=== PATIENT | male | born 1985 | race Caucasian/White ===

== ENCOUNTER 2018-08-04 22:02 | Emergency (ER) | payer SELFPAY ==
[2018-08-04] MEDS ORDERED: ASPIRIN PO ONE (22:27)
[2018-08-04 23:47] LABS: Basophils # (Auto) 0.1 K/mm3 (0.0-0.1); Basophils % (Auto) 0.7 % (0.0-1.8); Eosinophils # (Auto) 0.3 K/mm3 (0.0-0.4); Eosinophils % (Auto) 2.4 % (0.0-4.3); Hematocrit 44.2 % (35.5-45.6); Hemoglobin 14.8 gm/dl (11.8-15.2); Lymphocytes # (Auto) 3.6 K/mm3 (1.2-5.4); Lymphocytes % (Auto) 26.9 % (13.4-35.0); Mean Corpuscular HGB Conc 33 % (32-34); Mean Corpuscular Hemoglobin 29 pg (28-32); Mean Corpuscular Volume 88 fl (84-94); Monocytes # (Auto) 1.1 K/mm3 (0.0-0.8); Monocytes % (Auto) 8.5 % (0.0-7.3); Platelet Count 347 K/mm3 (140-440); Red Blood Count 5.01 M/mm3 (3.65-5.03); Red Cell Distribution Width 13.2 % (13.2-15.2)
[2018-08-05] MEDS ORDERED: NACL 0.9% 1000 ML 1,000 ML IV ONE (00:04)
--- NOTE | 2018-08-05 00:09 | Emergency Department Report ---
ED Chest Pain HPI - General Chief Complaint: Chest Pain Stated Complaint: CHEST PAIN Time Seen by Provider: 08/04/18 23:58 Source: patient, EMS Mode of arrival: Ambulatory Limitations: No Limitations - History of Present Illness Initial Comments: Mr. Wick is a 33 yo male with hx of PTSD, borderline personality disorder, HTN , DM who presents with chest pain after walking for 6 hours. He is new to the area. He was attempting to walk from [place] to the [facility]. He felt exhausted. He called 911 from his cellphone for assistance. No dyspnea. No syncope. He is in a mental health program and a work program called [facility] MD Complaint: chest pain -: Gradual Onset: during rest, during exertion Pain Location: left chest Pain Radiation: none Severity: mild Quality: pressure Consistency: constant Improves With: nothing Worsens With: nothing - Related Data Allergies Allergy/AdvReac Type Severity Reaction Status Date / Time No Known Allergies Allergy Verified 08/04/18 22:27 Heart Score - HEART Score History: Slightly suspicious EKG: Normal Age: < 45 Risk factors: > 3 risk factors or hx of atherosclerotic disease Troponin: < normal limit HEART Score: 2 ED Review of Systems ROS: Stated complaint: CHEST PAIN Other details as noted in HPI Comment: All other systems reviewed and negative Constitutional: denies: chills, fever Eyes: denies: eye pain, vision change ENT: denies: ear pain, throat pain Respiratory: denies: cough, shortness of breath, wheezing Cardiovascular: denies: chest pain, palpitations Endocrine: no symptoms reported Gastrointestinal: denies: abdominal pain, nausea, diarrhea Neurological: denies: headache, weakness, paresthesias Psychiatric: denies: anxiety, depression Hematological/Lymphatic: denies: easy bleeding, easy bruising ED Past Medical Hx - Past Medical History Previous Medical History?: Yes Hx Hypertension: Yes Hx Diabetes: Yes - Surgical History Past Surgical History?: Yes Additional Surgical History: necro facititis - Family History Family history: other (grandmother with cardiac disease) - Social History Smoking Status: Never Smoker Substance Use Type: None ED Physical Exam - General Limitations: No Limitations General appearance: alert, in no apparent distress - Head Head exam: Present: atraumatic, normocephalic - Eye Eye exam: Present: normal appearance - ENT ENT exam: Present: mucous membranes moist, other (poor dentition) - Neck Neck exam: Present: normal inspection. Absent: tenderness, meningismus - Respiratory Respiratory exam: Present: normal lung sounds bilaterally. Absent: respiratory distress, wheezes, rales, rhonchi - Cardiovascular Cardiovascular Exam: Present: regular rate, normal rhythm, normal heart sounds. Absent: bradycardia, tachycardia, systolic murmur, diastolic murmur, rubs, gallop - GI/Abdominal GI/Abdominal exam: Present: soft, normal bowel sounds. Absent: distended, tenderness, guarding, rebound - Rectal Rectal exam: Present: deferred - Extremities Exam Extremities exam: Present: normal inspection - Back Exam Back exam: Present: normal inspection - Neurological Exam Neurological exam: Present: alert, oriented X3 - Psychiatric Psychiatric exam: Present: normal affect, normal mood - Skin Skin exam: Present: warm, dry, intact, normal color. Absent: rash ED Course Vital Signs 08/04/18 08/05/18 08/05/18 22:22 01:14 01:15 Temperature 99.4 F Pulse Rate 123 H Respiratory 20 Rate Blood Pressure 105/69 103/62 115/60 O2 Sat by Pulse 98 Oximetry 08/05/18 08/05/18 01:30 01:46 Temperature Pulse Rate 113 H 114 H Respiratory 16 14 Rate Blood Pressure 121/58 117/52 O2 Sat by Pulse 98 95 Oximetry ED Medical Decision Making - Lab Data Result diagrams: 08/04/18 22:38 08/04/18 22:38 Laboratory Results - last 24 hr 08/04/18 08/04/18 08/05/18 22:38 22:38 01:33 WBC 13.5 H RBC 5.01 Hgb 14.8 Hct 44.2 MCV 88 MCH 29 MCHC 33 RDW 13.2 Plt Count 347 Lymph % (Auto) 26.9 Rhea % (Auto) 8.5 H Eos % (Auto) 2.4 Baso % (Auto) 0.7 Lymph # 3.6 Rhea # 1.1 H Eos # 0.3 Baso # 0.1 Seg Neutrophils % 61.5 Seg Neutrophils # 8.3 H Sodium 131 L Potassium 4.0 Chloride 92.4 L Carbon Dioxide 20 L Anion Gap 23 BUN 13 Creatinine 1.0 Estimated GFR > 60 BUN/Creatinine Ratio 13 Glucose 476 H Calcium 9.7 Troponin T < 0.010 < 0.010 - EKG Data EKG shows normal: sinus rhythm, axis, intervals, QRS complexes, ST-T waves Rate: tachycardia - EKG Data Interpretation: no acute changes, normal EKG (except for tachycardia), other (+ PVCs) 08/05/18 00:50 Second EKG obtained 42 Heart rate improved to 107 beats a minute normal axis normal intervals no ST-T signs ischemia and normal EKG with the exception of mild tachycardia no ST-T wave changes - Medical Decision Making Mr. Wick presents with chest pain and exhaustion after walking 6 hours. [address] angiogram negative for acute process. There is a 3 cm adrenal mass likely due to adenoma. Patient was informed. Patient given IV fluid for tachycardia. I did suspect element of dehydration. Discharged home in stable condition. Critical care attestation.: If time is entered above; I have spent that time in minutes in the direct care of this critically ill patient, excluding procedure time. ED Disposition Clinical Impression: Chest pain, Adrenal mass Disposition: - TO HOME OR SELFCARE Is pt being admited?: No Does the pt Need Aspirin: No Condition: Stable Instructions: Chest Pain (ED) Additional Instructions: You have a mass on your adrenal gland. You will need this followed by a doctor. Time of Disposition: 03:05
[2018-08-05 00:11] LABS: BUN/Creatinine Ratio 13; Blood Urea Nitrogen 13 mg/dL (9-20); Calcium 9.7 mg/dL (8.4-10.2); Hemolysis Index 7
[2018-08-05] MEDS ORDERED: PERCOCET 5/325 PO ONE (02:03)
--- NOTE | 2018-08-05 02:54 | Cat Scan Report ---
FINAL REPORT PROCEDURE: CT ANGIO CHEST TECHNIQUE: Computerized axial tomographic angiography of the chest and pulmonary arteries was performed after the IV injection of iodinated nonionic contrast. The image data was postprocessed using maximum intensity projection (MIP) and 2-dimensional multiplanar reformatted (MPR) techniques. The examination is specifically tailored to the evaluation of the pulmonary arteries per clinical request. HISTORY: Short of breath 786.09, chest pain 786.50, tachycardia chest pain COMPARISON: No prior studies are available for comparison. FINDINGS: Heart and pericardium: Normal. Thoracic aorta: There is no thoracic aortic aneurysm or dissection.. Pulmonary vasculature: Normal. No pulmonary emboli. Lymph nodes: No enlarged thoracic lymph nodes. Lungs: There is suboptimal inspiration. There are no infiltrates.. Pleural space: No effusion, thickening, or pneumothorax. Musculoskeletal structures: No significant abnormality. Upper abdominal structures: There is a 3.3 centimeter mass in the left adrenal gland suggesting an adenoma.. IMPRESSION: There is no pulmonary embolism.. There is no thoracic aortic aneurysm or dissection.. There is suboptimal inspiration. There are no infiltrates.. There are no effusions or pneumothoraces. There is a 3.3 centimeter mass in the left adrenal gland suggesting an adenoma..
[2018-08-05 03:33] VITALS: BP 118/66
== END 2018-08-05 03:34 | disposition home or self-care (01) ==
LOC: ED 22:02
DX: R07.89 Other chest pain (principal); D35.00 Benign neoplasm of unspecified adrenal gland; I10 Essential (primary) hypertension; E11.9 Type 2 diabetes mellitus without complications
CPT/HCPCS: 36415; 71275; 80048; 84484; 85025; 93005; 93010; 99285; J7030; Q9967